=== PATIENT | male | born 1985 | race Caucasian/White ===

== ENCOUNTER 2020-05-27 18:42 | Inpatient (IN) | payer OTHER ==
[~2020-05-27] VITALS: Ht 172.7 cm; Wt 86.9 kg
[2020-05-27] MEDS ORDERED: metroNIDAZOLE 500MG/100ML 100 ML IV ONE (19:30)
[2020-05-27] MEDS ORDERED: ONDANSETRON HCL 4 MG/2 ML VIAL IV ONE (19:30)
[2020-05-27] MEDS ORDERED: MORPHINE SULFATE 4 MG/ML SYR/VIAL IV ONE (19:30)
[2020-05-27 20:08] LABS: Basophils # (auto) 0.1 10 ^3/uL (0-0.2); Basophils % (auto) 0.7 % (0.0-2.0); Eosinophils # (auto) 0.3 10 ^3/uL (0-0.8); Eosinophils % (auto) 2.5 % (0.0-7.0); Hematocrit 43.2 % (41.0-53.0); Hemoglobin 14.7 g/dL (13.5-17.5); Lymphocytes # (auto) 1.7 10 ^3/uL (0.4-5.4); Lymphocytes % (auto) 15.6 % (10.0-50.0); Mean Corpuscular Hemoglobin 28.4 pg (28.0-32.0); Mean Corpuscular Hgb Conc. 34.1 g/dL (32.0-36.0); Mean Corpuscular Volume 83.4 fL (80.0-100.0); Monocytes # (auto) 0.7 10 ^3/uL (0-1.3); Monocytes % (auto) 6.5 % (0.0-12.0); Neutrophils # (auto) 8.2 10 ^3/uL (1.6-8.6); Neutrophils % (auto) 74.7 % (37.0-80.0); Nucleated Red Blood Cells % 0.1 %; Platelet Count (auto) 263 10^3/uL (140-450); Red Blood Cells 5.18 10^6/uL (4.5-5.90); Red Cell Distribution Width 13.6 % (11.8-14.3); White Blood Cell 10.9 10^3/uL (4.4-10.8)
[2020-05-27 20:21] LABS: Calcium 8.4 mg/dL (8.5-10.1); Potassium 3.7 mmol/L (3.5-5.1)
[2020-05-27 20:25] LABS: BUN/Creatinine Ratio 11.1; Total Protein 7.7 g/dL (6.4-8.2)
[2020-05-27 20:43] LABS: Urine Bacteria NONE SEEN /hpf (None Seen); Urine Blood Negative /uL (Negative); Urine Specific Gravity 1.016 (1.001-1.035); Urine WBC 1 /hpf (0 - 3)
[2020-05-28] VITALS (7 sets, daily range): BP systolic 101–138; BP diastolic 59–73
[2020-05-28] MEDS ORDERED: ONDANSETRON HCL 4 MG/2 ML VIAL IV PRN (02:00)
[2020-05-28] MEDS ORDERED: SOD CHL 0.45% 1,000 ML IV SCH (02:00)
[2020-05-28] MEDS ORDERED: MORPHINE SULF INJ 2 MG/ML SYRINGE 1ML IV PRN (02:00)
[2020-05-28] MEDS ORDERED: HYDROcodone-ACET 5/325MG TAB PO PRN (02:00)
[2020-05-28] MEDS ORDERED: NITROGLYCERIN 0.4 MG SL TAB SL PRN (02:00)
[2020-05-28] MEDS ORDERED: MORPHINE SULFATE 4 MG/ML SYR/VIAL IV PRN ×2 (02:00→13:45)
[2020-05-28] MEDS ORDERED: ACETAMINOPHEN 325 MG TAB PO PRN (02:00)
--- NOTE | 2020-05-28 02:45 | NUR ---
Telemetry admit from ER [facility] admitted to Telemetry unit after SBAR received. Patient oriented to Bakari Rocha primary RN, unit, room, bed, and unit policies regarding patient care and visiting hours. Patient now on continuous telemetry monitoring, tele box # [id number] and telemetry reading on arrival to unit is sinus rhythm. Patient weighed by bedscale and encouraged to call if they need something. All questions and concerns addressed, patient verbalized understanding.
[2020-05-28] MEDS: metroNIDAZOLE 500MG/100ML 100 ML IV SCH ×3 (05:51→21:45)
[2020-05-28 07:28] LABS: Basophils # (auto) 0 10 ^3/uL (0-0.2); Basophils % (auto) 0.5 % (0.0-2.0); Eosinophils # (auto) 0.2 10 ^3/uL (0-0.8); Eosinophils % (auto) 2.7 % (0.0-7.0); Hematocrit 40.6 % (41.0-53.0); Hemoglobin 13.9 g/dL (13.5-17.5); Lymphocytes # (auto) 1.6 10 ^3/uL (0.4-5.4); Lymphocytes % (auto) 20.3 % (10.0-50.0); Mean Corpuscular Hemoglobin 28.7 pg (28.0-32.0); Mean Corpuscular Hgb Conc. 34.2 g/dL (32.0-36.0); Mean Corpuscular Volume 84.1 fL (80.0-100.0); Monocytes # (auto) 0.6 10 ^3/uL (0-1.3); Monocytes % (auto) 7.9 % (0.0-12.0); Neutrophils # (auto) 5.6 10 ^3/uL (1.6-8.6); Neutrophils % (auto) 68.6 % (37.0-80.0); Platelet Count (auto) 226 10^3/uL (140-450); Red Blood Cells 4.82 10^6/uL (4.5-5.90); Red Cell Distribution Width 13.7 % (11.8-14.3); White Blood Cell 8.1 10^3/uL (4.4-10.8)
[2020-05-28 07:37] LABS: Albumin 3.4 g/dL (3.4-5.0); Calcium 8.5 mg/dL (8.5-10.1); Potassium 4.1 mmol/L (3.5-5.1)
[2020-05-28 07:41] LABS: BUN/Creatinine Ratio 11.4; Bilirubin, Total 1.5 mg/dL (0.2-1.0); Total Protein 6.6 g/dL (6.4-8.2)
--- NOTE | 2020-05-28 08:00 | NUR ---
OPENING SHIFT NOTE ASSUMED CARE OF PATIENT AWAKE AND ALERT. NO S/S OF DISTRESS NOTED OR COMPLAINTS OF PAIN. PATIENT UPDATED ON POC FOR THE DAY AND ALL QUESTIONS ANSWERED. BED IS IN LOWEST, LOCKED POSITION WITH SIDE RAILS UP X2 AND CALL LIGHT WITHIN REACH. WILL CONTINUE TO MONITOR Q1H AND PRN.
[2020-05-28] MEDS ORDERED: ASPITAB34 PO (09:43)
[2020-05-28] MEDS ORDERED: CETI1TAB36 PO (09:43)
[2020-05-28] MEDS ORDERED: CALC625T35 PO (09:43)
[2020-05-28] MEDS ORDERED: FEXO-47 PO (09:43)
[2020-05-28] MEDS ORDERED: CHOL20007 PO (09:43)
[2020-05-28] MEDS ORDERED: OMEG1CAP59 PO (09:43)
[2020-05-28] MEDS ORDERED: CYAN100T7 PO (09:43)
[2020-05-28] MEDS: PANTOPRAZOLE 40 MG/10 ML VIAL INJ IV SCH (10:01)
--- NOTE | 2020-05-28 10:18 | NUR ---
AT BEDSIDE DR AVELAR AT BEDSIDE CONSULTING WITH PATIENT.
[2020-05-28] MEDS: KETOROLAC TROMETH 30 MG/ML 1ML VIAL IV PRN ×2 (10:50→23:16)
--- NOTE | 2020-05-28 10:59 | NUR ---
AT BEDSIDE DR THOMPSON AT BEDSIDE ROUNDING ON PATIENT.
[2020-05-28] MEDS: SOD CHL 0.45% 1,000 ML IV SCH (14:20)
--- NOTE | 2020-05-28 19:27 | NUR ---
Opening Shift Note Assumed care of patient, awake and alert. No S/S of distress/SOB or pain. Instructed on POC and to call for assist PRN, will continue to monitor for changes Q1hr and PRN.
[2020-05-29] VITALS (7 sets, daily range): BP systolic 99–129; BP diastolic 49–74
[2020-05-29] MEDS: metroNIDAZOLE 500MG/100ML 100 ML IV SCH ×3 (05:54→21:26)
[2020-05-29 05:59] LABS: Basophils # (auto) 0 10 ^3/uL (0-0.2); Basophils % (auto) 0.6 % (0.0-2.0); Eosinophils # (auto) 0.3 10 ^3/uL (0-0.8); Eosinophils % (auto) 5.7 % (0.0-7.0); Hemoglobin 14.3 g/dL (13.5-17.5); Lymphocytes # (auto) 1.7 10 ^3/uL (0.4-5.4); Lymphocytes % (auto) 28.3 % (10.0-50.0); Mean Corpuscular Hemoglobin 29.1 pg (28.0-32.0); Mean Corpuscular Hgb Conc. 34.8 g/dL (32.0-36.0); Mean Corpuscular Volume 83.8 fL (80.0-100.0); Monocytes # (auto) 0.4 10 ^3/uL (0-1.3); Monocytes % (auto) 6.8 % (0.0-12.0); Neutrophils # (auto) 3.5 10 ^3/uL (1.6-8.6); Neutrophils % (auto) 58.6 % (37.0-80.0); Nucleated Red Blood Cells % 0.4 %; Platelet Count (auto) 242 10^3/uL (140-450); Red Cell Distribution Width 13.6 % (11.8-14.3)
[2020-05-29 06:16] LABS: Albumin 3.3 g/dL (3.4-5.0); Calcium 8.7 mg/dL (8.5-10.1); Potassium 3.9 mmol/L (3.5-5.1)
[2020-05-29 06:20] LABS: BUN/Creatinine Ratio 11.5; Bilirubin, Total 1.1 mg/dL (0.2-1.0); Total Protein 6.7 g/dL (6.4-8.2)
[2020-05-29] MEDS: SOD CHL 0.45% 1,000 ML IV SCH (06:25)
--- NOTE | 2020-05-29 08:30 | NUR ---
Opening Shift Note Assumed care of patient, awake, alert and eating breakfast upon entering the room. No S/S of distress/SOB. Patient reports left abdominal pain 11/20 stating it is tolerable at this time. Patient requesting stool softener reporting last bowel movement on 05/27/2020. Instructed on POC and that requested medication can be given with am routine medications. Encouraged to call for assist PRN. Bed is in lowest position and the call light is within reach of the patient. Will continue to monitor for changes Q1hr and PRN.
[2020-05-29] MEDS: PANTOPRAZOLE 40 MG/10 ML VIAL INJ IV SCH (10:25)
[2020-05-29] MEDS: DOCUSATE SOD 100 MG CAP PO PRN ×2 (10:25→21:26)
[2020-05-29] MEDS: levoFLOXacin 500MG 100 ML IV SCH (10:25)
--- NOTE | 2020-05-29 10:50 | NUR ---
Dr. Roblero at bedside Dr. Roblero at bedside discussing the POC with the patient. All questions and concerns were answered at this time. GI cleared patient for discharge.
--- NOTE | 2020-05-29 13:00 | NUR ---
Dr. Monroe at bedside Dr. Monroe at bedside discussing the POC with the patient. Possible discharge tomorrow. Patient verbalized understanding. All questions and concerns were addressed at this time.
[2020-05-29] MEDS ORDERED: LACTULOSE 20Gm/30ML SOLN PO PRN (13:15)
--- NOTE | 2020-05-29 19:00 | NUR ---
Opening Shift Note Assumed care of patient, awake and alert. No S/S of distress/SOB or pain. Instructed on POC and to call for assist PRN, will continue to monitor for changes Q1hr and PRN. Patient in the lowest possible position with call light within reach. Patient states he has discomfort as opposed to pain, will continue to monitor.
--- NOTE | 2020-05-29 21:00 | NUR ---
Patient states he has a pain of 6/10, patient stated that he just wants something to bring it down, patient did not want norco at this time, requested toradol for pain. Will give as ordered. Will continue to monitor patient
[2020-05-29] MEDS: KETOROLAC TROMETH 30 MG/ML 1ML VIAL IV PRN (21:26)
[2020-05-30] MEDS: SOD CHL 0.45% 1,000 ML IV SCH
[2020-05-30 05:00] VITALS: BP 125/75
[2020-05-30] MEDS: metroNIDAZOLE 500MG/100ML 100 ML IV SCH ×2 (05:38→13:45)
[2020-05-30 06:42] LABS: Basophils # (auto) 0 10 ^3/uL (0-0.2); Basophils % (auto) 0.7 % (0.0-2.0); Eosinophils # (auto) 0.3 10 ^3/uL (0-0.8); Hematocrit 40.1 % (41.0-53.0); Hemoglobin 13.9 g/dL (13.5-17.5); Lymphocytes # (auto) 1.6 10 ^3/uL (0.4-5.4); Lymphocytes % (auto) 26.3 % (10.0-50.0); Mean Corpuscular Hgb Conc. 34.6 g/dL (32.0-36.0); Mean Corpuscular Volume 83.9 fL (80.0-100.0); Monocytes # (auto) 0.4 10 ^3/uL (0-1.3); Monocytes % (auto) 6.9 % (0.0-12.0); Neutrophils # (auto) 3.6 10 ^3/uL (1.6-8.6); Neutrophils % (auto) 61.1 % (37.0-80.0); Platelet Count (auto) 258 10^3/uL (140-450); Red Blood Cells 4.78 10^6/uL (4.5-5.90); Red Cell Distribution Width 13.3 % (11.8-14.3); White Blood Cell 5.9 10^3/uL (4.4-10.8)
[2020-05-30 06:58] LABS: Potassium 3.5 mmol/L (3.5-5.1)
[2020-05-30 07:05] LABS: BUN/Creatinine Ratio 10.3; Calcium 8.7 mg/dL (8.5-10.1)
--- NOTE | 2020-05-30 07:30 | NUR ---
Opening Shift Note Assumed care of patient, awake and alert. No S/S of distress/SOB or pain. Patient reported moderate bowel movement and states that his pain has subsided 0/10. Instructed on POC and possible discharge today. Encouraged to call for assist PRN. Bed is in lowest position and the call light is within reach of the patient. Will continue to monitor for changes Q1hr and PRN.
[2020-05-30 09:00] VITALS: BP 120/68
[2020-05-30] MEDS: PANTOPRAZOLE 40 MG/10 ML VIAL INJ IV SCH (10:28)
[2020-05-30] MEDS: levoFLOXacin 500MG 100 ML IV SCH (10:31)
[2020-05-30 13:00] VITALS: BP 130/66
--- NOTE | 2020-05-30 13:49 | NUR ---
Dr. Monroe at bedside Dr. Monroe at bedside discussing discharge instructions. Patient verbalized understanding. Orders given and carried out accordingly.
[2020-05-30 16:07] VITALS: BP 130/66
--- NOTE | 2020-05-30 16:45 | NUR ---
Discharged Discharge instructions given as ordered. Encouraged to follow up with PMD as instructed. All questions and concerns addressed. Patient verbalized understanding. Prescriptions given to patient. IV removed with catheter intact, pressure dressing applied. Telemetry unit returned to ICU. Patient walked off the unit with all personal belongings. No S/S of distress or pain.
== END 2020-05-30 16:45 | disposition home or self-care (01) | DRG 391 ==
LOC: ER 18:42 → TELE 05-28 02:06 → TELE-WESTW 05-28 02:45
PROVIDERS: ADMIT Nurse Practitioner Family; ATTEND Internal Medicine
DX: K57.32 Diverticulitis of large intestine without perforation or abscess without bleeding (principal); N17.0 Acute kidney failure with tubular necrosis; E44.1 Mild protein-calorie malnutrition; R65.10 Systemic inflammatory response syndrome (SIRS) of non-infectious origin without acute organ dysfunction; E86.0 Dehydration; F32.9 Major depressive disorder, single episode, unspecified; K44.9 Diaphragmatic hernia without obstruction or gangrene; K59.00 Constipation, unspecified; N18.9 Chronic kidney disease, unspecified; N43.3 Hydrocele, unspecified; Z80.9 Family history of malignant neoplasm, unspecified; Z90.49 Acquired absence of other specified parts of digestive tract; Z68.29 Body mass index [BMI] 29.0-29.9, adult
CPT/HCPCS: 36415; 74176; 80048; 80053; 81001; 83690; 85025; 96365; 96367; 96375; C9113; G0378; J1885; J1956; J2405; J3490